=== PATIENT | male | born 1960 | race Caucasian/White ===

== ENCOUNTER → 2021-10-08 09:56 | Outpatient (CLI) | payer BC, SELFPAY ==
--- NOTE | 2021-10-08 10:00 | CA_ITS ---
APPROVED REPORT EXAM: Comprehensive 2D, Doppler, and color-flow Echocardiogram Animal Behaviorist: Antionette Gallego CRT Ht: 5 ft 6 in Wt: 182lbs BSA: 1.92 BP: 139/65 mmHg Indications: Hyperlipidemia, Hypertension/HDD, stent, smoker, cad 2D Dimensions LVOT 1.89 cm (M/F) 1.5-2.5 LA Volume 31.00 mL LA Volume Index 16.10 mL/m2 (M/F) 16-34 M-Mode Dimensions RVDd 3.13 cm (0.9-2.6) LA Diam 3.60 cm (1.9-4.0) LVDd 4.81 cm (3.5-5.7) Ao Diam 3.84 cm (2.0-3.7) LVDs 3.20 cm (3.5-5.7) IVSd 1.67 cm (0.6-1.1) PWd 0.85 cm (0.6-1.1) EF (Teich) 62.00% FS 33.50% EDV (Teich) 108.00 mL TAPSE 2.95 (<1.7) ESV (Teich) 41.00 mL LV Diastology E Decel Time 237.00 (160-240 msec) E/A Ratio 0.63 MED E' 6.50 (< 7 cm/sec) MED A' 12.80 cm/s E'/MED E' Ratio 11.69 (>14) LAT E' 10.00 (<10 cm/sec) LAT A' 14.00 cm/s E/LAT E' Ratio 7.60 (>14) Aortic Valve AO Peak GR. 10.30 mmHg Mitral Valve MV E Max [employer]. 76.00 (40-130 cm/s) MV A Velocity 120.00 (40-130 cm/s) E/A Ratio 0.63 MV Decel. Time 237.00 (160-240 ms) MV PHT 69.00 ms Pulmonary Valve PV Peak Velocity 95.00 (50-150 cm/s) Tricuspid Valve TR P. Velocity 157.00 cm/s RAP Estimate 10.00 mmHg RVSP 19.90 mmHg Left Ventricle Left atrium is mildly enlarged, left ventricle is normal size, mild concentric left ventricular hypertrophy, estimated ejection fraction 55% with no regional wall motion abnormality, grade 1 diastolic dysfunction seen without tissue Doppler evidence of raise left atrial pressure. Right Ventricle Right atrium and right ventricle mildly enlarged with normal contractility. Aortic Valve Aortic valve is minimally thickened and fibrosed, there is no aortic stenosis or aortic insufficiency. Mitral Valve Mitral valve grossly normal, there is trace mitral regurgitation. Tricuspid Valve Tricuspid grossly normal, there is trace tricuspid regurgitation, tricuspid regurgitation jet velocity is inadequate for calculation of the right ventricular systolic pressure. Pulmonic Valve Pulmonic valve is poorly visualized. Great Vessels Aortic root is normal size. Inferior vena cava normal size with normal inspiratory collapse. Pericardium No significant pericardial effusion noted. Conclusion 1. Normal left ventricular size, preserved left ventricular systolic function, estimated ejection fraction 55% with no regional wall motion abnormality, grade 1 diastolic dysfunction seen without tissue Doppler evidence of a left atrial pressure. 2. Mildly enlarged right atrium and right ventricle, contractility right ventricle is normal. 3. Trace mitral and tricuspid regurgitation. 4. No significant pericardial effusion. 5. Inferior vena cava normal size with normal inspiratory collapse. Electronically signed by : Vignesh Wilson MD 10/08/2021 19:20:05
== END ==
PROVIDERS: Visit Provider Internal Medicine
DX: R06.02 Shortness of breath (principal); I25.10 Atherosclerotic heart disease of native coronary artery without angina pectoris
CPT/HCPCS: 93306